=== PATIENT | male | born 1990 | race African-American/Black ===

== ENCOUNTER 2017-03-02 21:03 | Emergency (ER) | payer OTHER ==
[~2017-03-02] VITALS: Ht 172.7 cm; Wt 79.4 kg
[2017-03-02] MEDS ORDERED: ACETA-GESIC 321 EACH PO (21:18)
[2017-03-02 23:55] VITALS: BP 132/76
[2017-03-02] MEDS ORDERED: OXYCODONE HCL 55 MG PO (23:57)
== END 2017-03-03 00:08 | disposition home or self-care (01) ==
LOC: ER 21:03
DX: T55.1X1A Toxic effect of detergents, accidental (unintentional), initial encounter (principal); T26.92XA Corrosion of left eye and adnexa, part unspecified, initial encounter; T26.91XA Corrosion of right eye and adnexa, part unspecified, initial encounter; Y93.89 Activity, other specified; Y92.89 Other specified places as the place of occurrence of the external cause; Y99.8 Other external cause status